=== PATIENT | male | born 1980 | race Caucasian/White ===

== ENCOUNTER 2018-07-07 15:19 | Outpatient (CLI) | payer BC ==
--- NOTE | 2018-07-07 17:35 | RAD ---
LEFT SMALL FINGER THREE VIEWS; 07/07/2018 HISTORY: Fracture, small finger, left hand. COMPARISON: None available. FINDINGS: There is a small avulsion fracture seen involving the volar aspect base of the middle phalanx, left s mall finger. There is slight separation of fracture fragments. No additional fracture is seen, and there is no dislocation. No other osseous abnormality. IMPRESSION: Avulsion fracture, volar aspect base of middle phalanx, left small finger. POS: [facility]
== END 2018-07-07 15:20 | disposition home or self-care (01) ==
LOC: BICRAD 15:19
PROVIDERS: ATTEND Family Medicine
DX: S62.627A Displaced fracture of middle phalanx of left little finger, initial encounter for closed fracture (principal)

== ENCOUNTER 2021-01-17 13:31 | Outpatient (CLI) | payer BC | END 2021-01-17 13:32 | disposition home or self-care (01) | LOC: SCSRAD 13:31 | PROVIDERS: ATTEND Family Medicine | DX: R05 Cough (principal); U07.1 COVID-19; J12.82 Pneumonia due to coronavirus disease 2019 | CPT/HCPCS: 71046 ==